=== PATIENT | female | born 1980 | race Caucasian/White ===

== ENCOUNTER 2022-09-09 12:42 | Emergency (ER) | payer MEDICAID, OTHER ==
[~2022-09-09] VITALS: Ht 175.3 cm; Wt 77.0 kg
[2022-09-09 15:05] LABS: Hematocrit 39.5 % (36.0-46.0); Hemoglobin 13.4 g/dL (12.2-16.2); Mean Corpuscular Hemoglobin 31.8 pg (28.0-32.0); Mean Corpuscular Volume 93.4 fL (80.0-100.0); Red Blood Cells 4.23 10^6/uL (4.0-5.20); Red Cell Distribution Width 12.6 % (11.8-14.3); White Blood Cell 11.7 10^3/uL (4.4-10.8)
[2022-09-09 15:14] LABS: Basophils % (manual) 0 (0.0-2.0); Blast Cells 0; Metamyelocytes % 0; Myelocytes % 0; Promyelocytes % 0; Reactive Lymphocytes 0
[2022-09-09 15:24] LABS: Albumin 3.6 g/dL (3.4-5.0); BUN/Creatinine Ratio 14.6 (10.0-20.0); Calcium 8.8 mg/dL (8.5-10.1); Potassium 3.7 mmol/L (3.5-5.1)
[2022-09-09 15:27] LABS: Bilirubin, Total 0.3 mg/dL (0.2-1.0); Total Protein 6.7 g/dL (6.4-8.2)
[2022-09-09] MEDS ORDERED: HYDROcodone-ACET 5/325MG TAB PO ONE (15:30)
[2022-09-09 16:02] LABS: Band Neutrophils % (manual) 4; Eosinophils % (manual) 3 (0-7); Lymphocytes % (manual) 13 (10.0-50.0); Monocytes % (manual) 3 (0-12)
[2022-09-09] MEDS ORDERED: CEPH-510 PO (16:45)
[2022-09-09 17:32] VITALS: BP 112/68
== END 2022-09-09 17:33 | disposition home or self-care (01) ==
LOC: ER 12:42 → EDBD 12:42 → ER 17:33
DX: S61.511A Laceration without foreign body of right wrist, initial encounter (principal); S60.551A Superficial foreign body of right hand, initial encounter; M54.2 Cervicalgia; V43.52XA Car driver injured in collision with other type car in traffic accident, initial encounter; Y93.89 Activity, other specified; Y92.89 Other specified places as the place of occurrence of the external cause; Y99.8 Other external cause status
CPT/HCPCS: 12001; 36415; 70450; 71260; 72125; 73090; 73100; 73120; 74177; 80053; 85007; 85027; 99285; Q9967